=== PATIENT | female | born 1995 | race Two or more races ===

== ENCOUNTER 2018-08-16 12:53 | Emergency (ER) | payer BC ==
[2018-08-16] MEDS ORDERED: predniSONE TAB* 20 MG PO ONE (13:55)
[2018-08-16] MEDS ORDERED: Cephalexin CAP* 500 MG PO ONE (13:55)
[2018-08-16 14:16] LABS: ABS Lymphocytes 1.1 10^3/ul (1.0-4.8); ABS Neutrophils 10.3 10^3/ul (1.5-7.7); Eosinophil % 0.1 %; Hematocrit 38 % (35-47); Hemoglobin 13.2 g/dL (12.0-16.0); Mean Corpuscular HGB Conc 34 g/dL (31-36); Mean Corpuscular Hemoglobin 30 pg (27-31); Mean Corpuscular Volume 87 fL (80-97); Mean Platelet Volume 7.6 fL (7.4-10.4); Platelet Count 225 10^3/uL (150-450); Red Blood Count 4.42 10^6 /uL (3.70-4.87); Red Cell Distribution Width 13 % (10-15); White Blood Count 12.5 10^3/uL (3.5-10.8)
[2018-08-16 15:07] VITALS: BP 113/76
--- NOTE | 2018-08-16 15:52 | ED ---
Allergic Reaction/Systemic - HPI Summary HPI Summary: Patient is a 22-year-old female presenting to the ED with a possible allergic reaction. She states she is not allergic to anything that she is aware of other than quinine. She is endorsing erythema to the right cheek, near the right ear with a swollen right ear. This all occurred after she feels that she may have gotten a bug bite or a scratch near the ear in which she picked at. She denies any fevers, sweats, chills. She does endorse some nausea and some diarrhea, however she states she has been traveling over the past week. She is concerned over Lyme disease. She was seen at urgent care yesterday and she was given prednisone 40 mg in the ED. Prescription was sent but she never picked this up. She has not been on an antihistamine since being diagnosed with an allergic reaction. She denies any throat pain, difficulty swallowing, shortness of breath or hives. - History of Current Complaint Chief Complaint: EDRashSkinAbscess Time Seen by Provider: 08/16/18 13:09 Hx Obtained From: Patient Onset/Duration: Sudden Onset Timing: Constant Severity Initially: Moderate Severity Currently: Moderate Pain Intensity: 2 Pain Scale Used: 0-10 Numeric Location: Discrete @ - left sided cheek with involvment of the L earlobe Associated Signs And Symptoms: Positive: Negative - Related Hx Possible Reaction To: Unknown, Environmental Exposure, Food, Insect - Allergies/Home Medications Allergies/Adverse Reactions: Allergies Allergy/AdvReac Type Severity Reaction Status Date / Time quinine Allergy Vomiting Verified 08/16/18 13:03 PMH/Surg Hx/FS Hx/Imm Hx Previously Healthy: Yes Endocrine/Hematology History: Denies: Hx Diabetes Cardiovascular History: Denies: Hx Hypertension, Hx Pacemaker/ICD History: Denies: Hx Renal Disease Sensory History: Denies: Hx Hearing Aid Psychiatric History: Denies: Hx Panic Disorder - Surgical History Surgery Procedure, Year, and Place: T & A - Immunization History Hx Pertussis Vaccination: No Immunizations Up to Date: Yes Infectious Disease History: No Infectious Disease History: Denies: Traveled Outside the [place] in Last 30 Days - Social History Occupation: Employed Full-time Lives: With Family Alcohol Use: Occasionally Substance Use Type: Reports: Marijuana Smoking Status (MU): Current Some Day Smoker Review of Systems Negative: Fever, Chills, Fatigue, Skin Diaphoresis Negative: Palpitations, Chest Pain Negative: Shortness Of Breath, Cough Genitourinary: Negative Positive: no symptoms reported, see HPI Negative: Arthralgia, Myalgia Positive: Other - erythema to the L side of the cheek with warmth and swelling to the L earlobe Neurological: Negative All Other Systems Reviewed And Are Negative: Yes Physical Exam Triage Information Reviewed: Yes Vital Signs On Initial Exam: Initial Vitals Temp Pulse Resp BP Pulse Ox 99.3 F 67 16 125/73 100 08/16/18 12:58 08/16/18 12:58 08/16/18 12:58 08/16/18 12:58 08/16/18 12:58 Vital Signs Reviewed: Yes Appearance: Positive: Well-Appearing, Well-Nourished Skin: Positive: Skin Color Reflects Adequate Perfusion, Other - erythema to the L side of the cheek with warmth and swelling to the L earlobe Eyes: Positive: EOMI, Conjunctiva Clear ENT: Positive: Pharynx normal Neck: Positive: No Lymphadenopathy Respiratory/Lung Sounds: Positive: Clear to Auscultation, Breath Sounds Present Cardiovascular: Positive: RRR, Pulses are Symmetrical in both Upper and Lower Extremities Musculoskeletal: Positive: Strength/ROM Intact Neurological: Positive: Sensory/Motor Intact, Alert, Oriented to Person Place, Time, Speech Normal Psychiatric: Positive: Affect/Mood Appropriate AVPU Assessment: Alert Diagnostics - Vital Signs Vital Signs Temp Pulse Resp BP Pulse Ox 08/16/18 15:06 98.6 F 84 18 113/76 98 08/16/18 12:58 99.3 F 67 16 125/73 100 - Laboratory Lab Results: Lab Results 08/16/18 08/16/18 Range/Units 14:08 14:08 WBC 12.5 H (3.5-10.8) 10^3/uL RBC 4.42 (3.70-4.87) 10^6 /uL Hgb 13.2 (12.0-16.0) g/dL Hct 38 (35-47) % MCV 87 (80-97) fL MCH 30 (27-31) pg MCHC 34 (31-36) g/dL RDW 13 (10-15) % Plt Count 225 (150-450) 10^3/uL MPV 7.6 (7.4-10.4) fL Neut % (Auto) 82.6 % Lymph % (Auto) 9.0 % [place] % (Auto) 8.0 % Eos % (Auto) 0.1 % Baso % (Auto) 0.3 % Absolute Neuts (auto) 10.3 H (1.5-7.7) 10^3/ul Absolute Lymphs (auto) 1.1 (1.0-4.8) 10^3/ul Absolute Monos (auto) 1.0 H (0-0.8) 10^3/ul Absolute Eos (auto) 0.0 (0-0.6) 10^3/ul Absolute Basos (auto) 0.0 (0-0.2) 10^3/ul Absolute Nucleated RBC 0.0 10^3/ul Nucleated RBC % 0.0 C-Reactive Protein 19.03 H (<8.01) mg/L Result Diagrams: 08/16/18 14:08 Lab Statement: Any lab studies that have been ordered have been reviewed, and results considered in the medical decision making process. Allergic Reaction Course/Dx - Course Course Of Treatment: Patient is evaluated for left-sided cheek erythema which is extending into the left ear with swelling of the left ear. No swelling of the cheek. Airway is patent. No pharyngeal erythema or tonsillar exudates. No difficulty swallowing or pain with swallowing. No difficulty breathing or shortness of breath. She has taken 40 mg prednisone yesterday, but has not taken her dose today. She states the symptoms are similar to yesterday when she was seen [facility] except for the swollen earlobe. She is endorsing pain only with palpation. The area is erythematous, however not well demarcated. This appears to be an allergic reaction, however could have a cellulitic component. She is given 60 mg prednisone in the ED and labs are obtained. This shows an elevated white count with an elevated CRP. She will be given a week rx of keflex in addition to her prednisone medication. No evidence of further infection or allergic reaction to keep in the ED at this time. Patient appears stable, continues to be able to eat and drink okay. She will be discharged home with an allergic reaction and cellulitis. She is unsure if she had a tick bite in the location, but will add Lyme titer . This does not appear to be an EM rash. - Diagnoses Differential Diagnosis/HQI/PQRI: Positive: Anaphylaxis, Angioedema, Local Allergic Reaction, Urticaria Provider Diagnoses: Allergic reaction Discharge - Sign-Out/Discharge Documenting (check all that apply): Patient Departure Patient Received Moderate/Deep Sedation with Procedure: No - Discharge Plan Condition: Stable Disposition: HOME Prescriptions: Cephalexin CAP* [Keflex CAP*] 500 mg PO TID #21 cap MDD 3 Referrals: Claudia Ryder MD [Primary Care Provider] - Additional Instructions: As discussed, this could be infectious - so will place you on antibiotics at this time Benadryl before bed and Certrizine or zhanna (over the counter) will help during the day time for allergic reaction Prednisone 60mg given to you today Your next dose is tomorrow at 40mg and follow previous instructions (from other provider) Ice packs to the area will help with any pain and swelling Ibuprofen 600ng three times daily will help with swelling - take this consistently over the next 3 days You may also take tylenol on opposite schedule If symptoms worsen - return to the ED - Billing Disposition and Condition Condition: STABLE Disposition: Home
[2018-08-18 21:23] LABS: B garinii/B afzelii PCR Negative (Negative); B mayonii PCR Negative (Negative)
== END 2018-08-16 15:06 | disposition home or self-care (01) ==
LOC: ED 12:53
DX: T78.40XA Allergy, unspecified, initial encounter (principal); X58.XXXA Exposure to other specified factors, initial encounter; F17.210 Nicotine dependence, cigarettes, uncomplicated; Z88.8 Allergy status to other drugs, medicaments and biological substances
CPT/HCPCS: 36415; 85025; 86140; 87476; 87798; 99282; A9270-GY; J7512